=== PATIENT | male | born 1955 | race Caucasian/White ===

== ENCOUNTER 2020-05-09 10:17 | Emergency (ER) | payer OTHER ==
[~2020-05-09] VITALS: Ht 172.7 cm; Wt 90.7 kg
[2020-05-09 10:20] VITALS: Ht 172.7 cm; Wt 90.7 kg
[2020-05-09 10:50] VITALS: BP 186/98
== END 2020-05-09 10:50 | disposition home or self-care (01) ==
LOC: ED 10:17
DX: T18.9XXA Foreign body of alimentary tract, part unspecified, initial encounter (principal); X58.XXXA Exposure to other specified factors, initial encounter; Y93.89 Activity, other specified; Y92.89 Other specified places as the place of occurrence of the external cause; Y99.8 Other external cause status